=== PATIENT | female | born 1995 | race African-American/Black ===

== ENCOUNTER 2018-01-05 14:22 | Emergency (ER) | payer SELFPAY ==
[2018-01-05] MEDS ORDERED: Sodium Chloride 0.9% 1,000 ML ONE (14:41)
[2018-01-05] MEDS ORDERED: Ketorolac Tromethamine 30 MG/ML VIAL ONE (14:41)
== END 2018-01-05 15:40 | disposition home or self-care (01) ==
LOC: NAV ERS 14:22
DX: G44.209 Tension-type headache, unspecified, not intractable (principal)
CPT/HCPCS: 96361; 96374; J1885; J7050